=== PATIENT | male | born 1990 | race African-American/Black ===

== ENCOUNTER 2018-09-12 05:10 | Emergency (ER) | payer SELFPAY ==
[2018-09-12] MEDS ORDERED: Ketorolac 60 MG/2 ML SDV IM ONE (05:47)
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
--- NOTE | 2018-09-12 06:21 | CR ---
INDICATION: Lumbar pain. FINDINGS: Three views of the lumbar spine show normal height and alignment of the lumbar vertebral bodies. No evidence of acute fracture or dislocation. No other bony or soft tissue abnormalities identified. Dictated by Jin Huston MD @ 09/12/2018 6:20:25 AM Dictated by: Jin Huston MD @ 09/12/2018 06:20:40 (Electronically Signed)
== END 2018-09-12 06:42 | disposition home or self-care (01) ==
LOC: MW.ED 05:10
DX: M54.42 Lumbago with sciatica, left side (principal); X50.0XXA Overexertion from strenuous movement or load, initial encounter
CPT/HCPCS: 72100; 96372; 99283; J1885